=== PATIENT | female | born 1995 | race African-American/Black ===

== ENCOUNTER 2019-03-28 13:32 | Emergency (ER) | payer MEDICAID ==
[~2019-03-28] VITALS: Ht 170.2 cm; Wt 95.0 kg
[~2019-03-28 13:32] MED LIST: FERR-43 PO; PREN-88 PO
[2019-03-28] MEDS ORDERED: NAPR-681 MT (13:54)
[2019-03-28] MEDS ORDERED: IPRATROPIUM BROMIDE (0.02%) 0.5MG/2.5ML NEB HHN STA (14:38)
[2019-03-28] MEDS ORDERED: ALBUTEROL (0.083%) 2.5MG/3ML NEB HHN STA (14:38)
[2019-03-28] MEDS ORDERED: KETOROLAC 30MG/ML VIAL IM ONE (15:30)
[2019-03-28 16:32] VITALS: BP 137/82
== END 2019-03-28 16:35 | disposition home or self-care (01) ==
LOC: ER 13:32
DX: R07.81 Pleurodynia (principal); J45.909 Unspecified asthma, uncomplicated; Z88.6 Allergy status to analgesic agent; Z88.0 Allergy status to penicillin
CPT/HCPCS: 71045; 94640; 96372; 99283; J1885; J7611; Z7610

== ENCOUNTER 2019-04-06 12:13 | Emergency (ER) | payer MEDICAID ==
[~2019-04-06] VITALS: Ht 170.2 cm; Wt 95.0 kg
[~2019-04-06 12:13] MED LIST changes: -FERR-43 PO; +NAPR-681 MT; -PREN-88 PO
[2019-04-06 12:58] VITALS: BP 124/77
[2019-04-06 15:26] LABS: CLARITY URINE CLOUDY (CLEAR); COLOR URINE YELLOW (YELLOW); KETONES URINE 2+ (NEGATIVE); LEUKOCYTE ESTERASE URINE 3+ (NEGATIVE); NITRITE URINE NEGATIVE (NEGATIVE); OCCULT BLOOD URINE NEGATIVE (NEGATIVE); PH URINE 6.5 (4.5-8.0); PROTEIN URINE TRACE (NEGATIVE); SPECIFIC GRAVITY URINE 1.021 (1.005-1.030); UROBILINOGEN URINE 0.2 E.U./dL (0.2-1.0)
== END 2019-04-06 16:32 | disposition home or self-care (01) ==
LOC: ER 13:27
DX: N30.90 Cystitis, unspecified without hematuria (principal); B37.3 Candidiasis of vulva and vagina; J45.909 Unspecified asthma, uncomplicated; Z91.010 Allergy to peanuts; Z88.0 Allergy status to penicillin; Z88.6 Allergy status to analgesic agent
CPT/HCPCS: 81003; 81025; 99283

== ENCOUNTER 2019-10-25 22:10 | Emergency (ER) | payer MEDICAID, OTHER ==
[~2019-10-25] VITALS: Ht 170.2 cm; Wt 95.0 kg
[2019-10-26 00:03] LABS: BASOPHILS % 0.6 % (0.0-2.0); EOSINOPHILS % 0.3 % (0.0-5.0); HEMATOCRIT. 23.1 % (36.0-48.0); HEMOGLOBIN. 7.4 g/dL (12.0-16.0); LYMPHOCYTES % 25.7 % (20.0-50.0); MEAN CORPUSCULAR HEMOGLOBIN 20.9 pg (28.0-32.0); MEAN PLATELET VOLUME 7.1 fl (7.4-10.4); MONOCYTES % 7.5 % (2.0-8.0); NEUTROPHILS % 65.9 % (40.0-76.0); PLATELET 484 x1000/uL (130-400); RED BLOOD CELL COUNT 3.56 mill/uL (4.2-5.4); RED CELL DISTRIBUTION WIDTH 16.3 % (11.6-14.6)
[2019-10-26 00:10] LABS: CHLORIDE 108 mEq/L (98-107)
[2019-10-26 00:31] LABS: PLATELET ESTIMATE INCREASED
[2019-10-26 05:08] LABS: HEMATOCRIT 22.2 % (36.0-48.0); HEMOGLOBIN 7.2 g/dL (12.0-16.0)
[2019-10-26 05:37] VITALS: BP 126/60
[2019-10-26] MEDS ORDERED: FERROUS SULFATE 325MG TABLET PO SCH (09:00)
== END 2019-10-26 06:35 | disposition home or self-care (01) ==
LOC: ER 22:10
DX: D25.9 Leiomyoma of uterus, unspecified (principal); N93.9 Abnormal uterine and vaginal bleeding, unspecified; D64.9 Anemia, unspecified; J45.909 Unspecified asthma, uncomplicated; Z88.6 Allergy status to analgesic agent; Z88.0 Allergy status to penicillin; Z91.010 Allergy to peanuts
CPT/HCPCS: 36415; 76830; 76856; 80053; 81025; 85014; 85018; 85025; 86850; 86900; 99284

== ENCOUNTER 2023-01-23 20:33 | Emergency (ER) | payer MEDICAID ==
[~2023-01-23] VITALS: Ht 172.7 cm; Wt 80.0 kg
[2023-01-23 20:37] VITALS: O2SAT 100
[2023-01-23 20:40] VITALS: BP 119/66; PULSE 97; RESP 17
[2023-01-23] MEDS ORDERED: PREDNISONE 20MG TABLET PO STA (21:08)
[2023-01-23] MEDS ORDERED: ACETAMINOPHEN 325MG TABLET PO ONE (22:00)
[2023-01-23] MEDS ORDERED: ALBU05 NEB (22:01)
[2023-01-23] MEDS ORDERED: ALBU6.7H15 INH (22:01)
[2023-01-23] MEDS ORDERED: P50 MT (22:01)
[2023-01-23 22:16] VITALS: TEMP 98.7
== END 2023-01-23 23:12 | disposition home or self-care (01) ==
LOC: ER 20:57
DX: J45.909 Unspecified asthma, uncomplicated (principal); Z88.0 Allergy status to penicillin; Z88.6 Allergy status to analgesic agent
CPT/HCPCS: 99283; 71045; 93005; J7512

== ENCOUNTER 2024-06-22 18:41 | Emergency (ER) | payer MEDICAID, OTHER ==
[~2024-06-22] VITALS: Ht 167.6 cm; Wt 94.0 kg
[~2024-06-22 18:41] MED LIST changes: +ALBU05 NEB; +ALBU6.7H15 INH; +P50 MT
[2024-06-22 18:45] VITALS: O2SAT 99
[2024-06-22 20:07] LABS: BASOPHILS % 0.4 % (0.0-2.0); DIFFERENTIAL COMMENT 0; EOSINOPHILS % 1.2 % (0.0-5.0); HEMATOCRIT. 32.9 % (36.0-48.0); HEMOGLOBIN. 10.5 g/dL (12.0-16.0); LYMPHOCYTES % 26.7 % (20.0-50.0); MEAN CORPUSCULAR HEMOGLOBIN 23.8 pg (28.0-32.0); MEAN CORPUSCULAR HGB CONC 31.9 g/dL (31.0-37.0); MEAN CORPUSCULAR VOLUME 74.6 fL (81.0-99.0); MEAN PLATELET VOLUME 7.7 fl (7.4-10.4); MONOCYTES % 4.8 % (2.0-8.0); NEUTROPHILS % 66.9 % (40.0-76.0); PLATELET 357 x1000/uL (130-400); WHITE BLOOD COUNT 8.8 x1000/uL (4.5-11.0)
[2024-06-22 20:13] LABS: CHLORIDE 107 mEq/L (98-107); POTASSIUM 3.8 mEq/L (3.5-5.1); SODIUM 139 mEq/L (136-145)
[2024-06-22 20:14] LABS: CALCIUM 9.4 mg/dL (8.7-10.4); CARBON DIOXIDE 25 mEq/L (21-32)
[2024-06-22 20:16] LABS: CLARITY URINE CLEAR (CLEAR); COLOR URINE YELLOW (YELLOW); GLUCOSE URINE NEGATIVE (NEGATIVE); KETONES URINE TRACE (NEGATIVE); LEUKOCYTE ESTERASE URINE NEGATIVE (NEGATIVE); NITRITE URINE NEGATIVE (NEGATIVE); OCCULT BLOOD URINE NEGATIVE (NEGATIVE); PH URINE 5.5 (4.5-8.0); PROTEIN URINE TRACE (NEGATIVE); SPECIFIC GRAVITY URINE 1.033 (1.005-1.030)
[2024-06-22 20:19] LABS: CREATININE 0.9 mg/dL (0.6-1.0); GLUCOSE 126 mg/dL (70-105); HCG SCREEN POSITIVE; UREA NITROGEN BLOOD 11 mg/dL (9-23)
[2024-06-22 20:38] LABS: BACTERIA URINE NONE SEEN; RBC URINE NONE SEEN /hpf (0-2); SQUAMOUS EPITHELIAL CELL URINE FEW /lpf (RARE/1+); WBC URINE 0-2 /hpf (0-2)
[2024-06-22 20:41] LABS: B-HCG QUANTITATIVE 5174 mIU/mL (<6)
[2024-06-23 02:52] VITALS: BP 125/78; PULSE 89; RESP 14; TEMP 36.9; O2SAT 99
== END 2024-06-23 01:30 | disposition home or self-care (01) ==
LOC: ER 18:41
DX: O26.891 Other specified pregnancy related conditions, first trimester (principal); R10.84 Generalized abdominal pain; J45.909 Unspecified asthma, uncomplicated; Z79.899 Other long term (current) drug therapy; Z79.1 Long term (current) use of non-steroidal anti-inflammatories (NSAID); Z3A.01 Less than 8 weeks gestation of pregnancy; Z88.0 Allergy status to penicillin; Z88.6 Allergy status to analgesic agent
CPT/HCPCS: 36415; 76801; 80048; 81003; 84702; 84703; 85025; 99284